=== PATIENT | female | born 1990 | race African-American/Black ===

== ENCOUNTER 2018-03-03 11:56 | Emergency (ER) | payer MEDICAID ==
[2018-03-03 12:18] VITALS: BP 122/75
--- NOTE | 2018-03-03 12:58 | EDM.PDOC ---
ED HPI GENERAL MEDICAL PROBLEM - General Chief Complaint: Abdominal Pain Stated Complaint: LUMP NEAR NAVEL Time Seen by Provider: 03/03/18 12:24 Source of Information: Reports: Patient History Limitations: Reports: No Limitations - History of Present Illness INITIAL COMMENTS - FREE TEXT/NARRATIVE: The patient states that she has been experiencing sharp pain superior and to the right of her umbilicus, on and off for the past year. She states that she feels a "protrusion" there, which goes up and goes down. No recent fever, nausea , vomiting, or diarrhea. The patient has had recent constipation. No recent urinary symptoms. No prior medical evaluation for this issue, and it is unclear what brings the patient to the ED today, specifically. The patient does not have a PCP. 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: - Past Surgical History HEENT Surgical History: Reports: Oral Surgery (Upper left wisdom tooth extraction) Female Surgical History: Reports: Section (x 2) Social & Family History - Family History Family Medical History: Noncontributory - Tobacco Use Smoking Status *Q: Former Smoker Years of Tobacco use: 5 Packs/Tins Daily: 0.3 Month/Year Tobacco Last Used: Quit around Aug 2017 - Caffeine Use Caffeine Use: Reports: Coffee, Energy Drinks, Soda, Tea - Alcohol Use Alcohol Use History: Yes Alcohol Use Frequency: Socially - Recreational Drug Use Recreational Drug Use: No - Living Situation & Occupation Living situation: Reports: Single, with Family (Mother, 2 sons) 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 ED EXAM, GI/ABD - Physical Exam Exam: See Below Exam Limited By: No Limitations General Appearance: Alert, WD/WN, No Apparent Distress GI/Abdominal Exam: Normal Bowel Sounds, Soft, Non-Tender, No Organomegaly, No Distention, No Abnormal Bruit, Other (Very small periumbilical hernia, located just superior and to the right of the patient's umbilicus, easily reducible, with no significant tenderness) Neurological: Alert, Oriented, Normal Cognition, No Motor/Sensory Deficits Psychiatric: Normal Affect Skin Exam: Warm, Dry, Intact, Normal Color, No Rash Course - Vital Signs Last Recorded V/S: Last Vital Signs Temp 36.7 C 03/03/18 12:15 Pulse 65 03/03/18 12:15 Resp 20 03/03/18 12:15 BP 122/75 03/03/18 12:15 Pulse Ox 99 03/03/18 12:15 - Re-Assessments/Exams Free Text/Narrative Re-Assessment/Exam: 03/03/18 12:55 The patient likely has a paraumbilical hernia, easily reducible. It is not a medical emergency, therefore there is no indication for an emergent ultrasound or CT scan of the abdomen. I will instead refer the patient to Dr. Green for further evaluation. Departure - Departure Time of Disposition: 12:56 Disposition: Home, Self-Care 01 Condition: Good Clinical Impression: Paraumbilical hernia - Discharge Information Instructions: Umbilical Hernia, Adult Referrals: Dione Mckeon MD [Primary Care Provider] - Cleveland Green MD [Physician] - Forms: ED Department Discharge Additional Instructions: You were seen in the emergency room for a painful lump by your umbilicus. On examination, you likely have an easily reducible paraumbilical hernia. As this is not a medical emergency, no imaging study was performed. Follow-up with the surgeon Dr. Green at the next available appointment, for further evaluation. If any other problems, please do not hesitate to return to the ER.
== END 2018-03-03 13:00 | disposition home or self-care (01) ==
LOC: JD.ED 11:56
DX: K42.9 Umbilical hernia without obstruction or gangrene (principal); Z79.899 Other long term (current) drug therapy; Z87.891 Personal history of nicotine dependence
CPT/HCPCS: 99283

== ENCOUNTER 2018-03-13 21:33 | Emergency (ER) | payer OTHER, MEDICAID ==
[2018-03-13 21:49] VITALS: BP 129/81
== END 2018-03-13 21:57 | disposition left against medical advice (07) ==
LOC: JD.ED 21:33
DX: Z53.21 Procedure and treatment not carried out due to patient leaving prior to being seen by health care provider (principal)
CPT/HCPCS: 99283

== ENCOUNTER 2018-05-23 09:49 | Emergency (ER) | payer MEDICAID ==
[2018-05-23 09:56] VITALS: BP 120/65
--- NOTE | 2018-05-23 10:43 | CT ---
Head CT Technique: Multiple axial sections through the brain were obtained. Intravenous contrast was not utilized. Comparison: No previous intracranial imaging. Findings: Ventricles along with basal cisterns and sulci over convexities appear within normal limits for the patient's age. No abnormal parenchymal densities are seen. No evidence of intracranial hemorrhage. No midline shift or mass effect is seen. Bone window settings were reviewed which shows no acute calvarial abnormality. Visualized sinuses are clear. Impression: 1. Nothing acute is appreciated on noncontrast head CT exam. Diagnostic code #1
--- NOTE | 2018-05-23 10:47 | CT ---
CT facial bones Technique: Multiple axial sections through the facial bones were obtained. Reconstructed coronal and sagittal images were obtained. Comparison: No prior facial bone exam. Findings: Paranasal sinuses are clear. Right and left globes are symmetric. No facial bone fracture is seen. Dental caries are felt to be present. Impression: 1. Dental caries appear to be present. 2. CT study of the facial bones is otherwise unremarkable. Diagnostic code #3
--- NOTE | 2018-05-23 11:14 | CR ---
Right humerus: Two views of the right humerus were obtained. Comparison: No previous study. No fracture or other abnormality is seen. Impression: 1. No abnormality is seen on two-view right humerus exam. Diagnostic code #1
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
== END 2018-05-23 12:03 | disposition home or self-care (01) ==
LOC: JD.ED 09:49
DX: S06.0X9A Concussion with loss of consciousness of unspecified duration, initial encounter (principal); S00.83XA Contusion of other part of head, initial encounter; S40.022A Contusion of left upper arm, initial encounter; Y04.2XXA Assault by strike against or bumped into by another person, initial encounter
CPT/HCPCS: 70450; 70450-26; 70486; 70486-26; 73060-26-RT; 73060-RT; 99284; 99284-25

== ENCOUNTER 2018-11-02 19:15 | Emergency (ER) | payer MEDICAID ==
[2018-11-02 19:32] VITALS: BP 116/79
--- NOTE | 2018-11-02 19:49 | EDM.PDOC ---
ED HPI GENERAL MEDICAL PROBLEM - General Chief Complaint: ENT Problem Stated Complaint: ITCHY EYES Time Seen by Provider: 11/02/18 19:28 Source of Information: Reports: Patient History Limitations: Reports: No Limitations - History of Present Illness INITIAL COMMENTS - FREE TEXT/NARRATIVE: The patient has itchy, watery eyes with a yellowish discharge. This started yesterday. She is getting over a cold where she had a cough, fever, sore throat , congestion and runny nose. She has no medical problems or allergies. Onset: Gradual Duration: Day(s): (2) Quality: Reports: Other (itchy) Severity: Moderate Improves with: Reports: None Worsens with: Reports: None Associated Symptoms: Reports: No Other Symptoms Bilateral Eye Pain Score (Numeric/FACES): 6 - Related Data Allergies Allergy/AdvReac Type Severity Reaction Status Date / Time No Known Allergies Allergy Verified 11/02/18 19:32 Home Meds: Home Meds Ethinyl Estradiol/Drospirenone [Wen 28] 1 tab PO DAILY 03/03/18 [History] Naproxen [Naprosyn] 500 mg PO Q12HR PRN 7 Days #14 tab 06/07/18 [Rx] Ciprofloxacin [Ciprofloxacin 0.3% Ophth Soln] 1 drop EYEBOTH Q4HR #1 bottle 03/16 [Rx] Past Medical History - Past Health History Medical/Surgical History: Denies 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: Musculoskeletal History: Reports: Neck Pain, Chronic - Past Surgical History HEENT Surgical History: Reports: Oral Surgery GI Surgical History: Reports: Hernia Repair/Other Female Surgical History: Reports: Section Social & Family History - Family History Family Medical History: Noncontributory - Tobacco Use Smoking Status *Q: Never Smoker - Caffeine Use Caffeine Use: Reports: None - Recreational Drug Use Recreational Drug Use: No - Living Situation & Occupation Living situation: Reports: Single, with Family (Mother, 2 sons) 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) ED 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 ENT - Review of Systems Review Of Systems: See Below Constitutional: Reports: No Symptoms HEENT: Reports: Eye Discharge Respiratory: Reports: No Symptoms Cardiovascular: Reports: No Symptoms Endocrine: Reports: No Symptoms GI/Abdominal: Reports: No Symptoms : Reports: No Symptoms ED EXAM, ENT - Physical Exam Exam: See Below Exam Limited By: No Limitations General Appearance: Alert, No Apparent Distress Eye Exam: Bilateral Eye: Conjunctival Injection Ears: Normal External Exam Nose: Normal Inspection Mouth/Throat: Normal Inspection Head: Atraumatic, Normocephalic Neck: Normal Inspection, Supple, Non-Tender Respiratory/Chest: No Respiratory Distress, Lungs Clear, Normal Breath Sounds Cardiovascular: Regular Rate, Rhythm, No Edema, No Murmur GI/Abdominal: Soft, Non-Tender, No Organomegaly, No Mass Back: Normal Inspection Extremities: Normal Inspection Neurological: Alert, Oriented, No Motor/Sensory Deficits Course - Vital Signs Last Recorded V/S: Last Vital Signs Temp 98.2 F 11/02/18 19:28 Pulse 86 11/02/18 19:28 Resp 18 11/02/18 19:28 BP 116/79 11/02/18 19:28 Pulse Ox 99 11/02/18 19:28 Departure - Departure Time of Disposition: 19:50 Disposition: Home, Self-Care 01 Condition: Good Clinical Impression: Bacterial conjunctivitis of both eyes - Discharge Information *PRESCRIPTION DRUG MONITORING PROGRAM REVIEWED*: Not Applicable *COPY OF PRESCRIPTION DRUG MONITORING REPORT IN PATIENT ELIOT: Not Applicable Prescriptions: Ciprofloxacin [Ciprofloxacin 0.3% Ophth Soln] 1 drop EYEBOTH Q4HR #1 bottle Referrals: Dione Mckeon MD [Primary Care Provider] - Additional Instructions: Use the cipro drops 1 drop in each eye every 4 hours while awake for 5 to 7 days. Use a warm wash cloth a couple times per day to clean each eye. Please return if you are worse.
== END 2018-11-02 20:05 | disposition home or self-care (01) ==
LOC: JD.ED 19:15
DX: H10.89 Other conjunctivitis (principal); B96.89 Other specified bacterial agents as the cause of diseases classified elsewhere; Z79.899 Other long term (current) drug therapy
CPT/HCPCS: 99283

== ENCOUNTER 2019-01-25 18:55 | Emergency (ER) | payer MEDICAID ==
[2019-01-25 19:07] VITALS: BP 119/66
--- NOTE | 2019-01-25 19:39 | EDM.PDOC ---
ED HPI GENERAL MEDICAL PROBLEM - General Chief Complaint: Upper Extremity Injury/Pain Stated Complaint: hand injury Time Seen by Provider: 01/25/19 19:38 Source of Information: Reports: Patient History Limitations: Reports: No Limitations - History of Present Illness INITIAL COMMENTS - FREE TEXT/NARRATIVE: 28-year-old female presents for evaluation and treatment of injury to the right hand. Patient was playing with her children yesterday. She states that her hand "bent all the Way back." She has pain primarily to the proximal phalanx of her right thumb. She reports pain with range of motion. No pain into fingers 2 through 5. No numbness or tingling. Patient is right-handed. 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: Musculoskeletal History: Reports: Neck Pain, Chronic - Past Surgical History HEENT Surgical History: Reports: Oral Surgery GI Surgical History: Reports: Hernia Repair/Other Female Surgical History: Reports: Section Social & Family History - Family History Family Medical History: Noncontributory - Tobacco Use Smoking Status *Q: Never Smoker Second Hand Smoke Exposure: No - Caffeine Use Caffeine Use: Reports: None - Recreational Drug Use Recreational Drug Use: No - Living Situation & Occupation Living situation: Reports: Single, with Family (Mother, 2 sons) 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) Review of Systems - Review of Systems Review Of Systems: See Below Musculoskeletal: Reports: Hand Pain (right, proximal first phalnex) Neurological: Denies: Numbness, Tingling ED EXAM, GENERAL - Physical Exam Exam: See Below Exam Limited By: No Limitations General Appearance: Alert, WD/WN, No Apparent Distress Cardiovascular: Normal Peripheral Pulses, Regular Rate, Rhythm Peripheral Pulses: 2+: Radial (R) Extremities: Normal Inspection (no obvious deformity), Normal Capillary Refill, Limited Range of Motion (pain with opposition, adduction, abduction, flexion and extension), Other (tendernes to palpation to the right proximal first phalnex along the radial aspect). No: Increased Warmth Neurological: Alert, Oriented, Normal Cognition Psychiatric: Normal Affect, Normal Mood Skin Exam: Warm, Dry, Normal Color Course - Vital Signs Last Recorded V/S: Last Vital Signs Temp 97.8 F 01/25/19 19:05 Pulse 66 01/25/19 19:05 Resp 16 01/25/19 19:05 BP 119/66 01/25/19 19:05 Pulse Ox 98 01/25/19 19:05 - Radiology Interpretation Free Text/Narrative:: xrays of the right hand show no acute fractures or dislocations. Formal radiology read pending. - Re-Assessments/Exams Free Text/Narrative Re-Assessment/Exam: 01/25/19 20:14 Reviewed the xrays with the patient. Will treat for gameshannanepers thumb with thumb spika splint. Instructed on symptomatic care. Discharge instructions as documented. Departure - Departure Time of Disposition: 20:15 Disposition: Home, Self-Care 01 Condition: Good Clinical Impression: Gamekeeper's thumb - Discharge Information *PRESCRIPTION DRUG MONITORING PROGRAM REVIEWED*: No *COPY OF PRESCRIPTION DRUG MONITORING REPORT IN PATIENT ELIOT: No Instructions: Thumb Sprain Referrals: Dione Mckeon MD [Primary Care Provider] - Dar Malcolm MD [Physician] - Forms: ED Department Discharge Additional Instructions: [id number] Tylenol or Motrin as needed for pain relief. Ice as needed. Wear the splint for the next 2 weeks. You may remove and perform gentle range of motion as tolerated. Follow-up with orthopedics if not much better in [address] Malcolm call [phone] to schedule with him. Please return the ER if your symptoms change or worsen.
--- NOTE | 2019-01-26 06:47 | CR ---
Right hand: Four views of the right hand were obtained. Comparison: No prior hand exam. Joint spaces are preserved. Small cysts are seen within several carpal bones which are incidental. No acute fracture, dislocation or other bony abnormality is seen. Impression: 1. Incidental finding. Nothing acute is appreciated on right hand exam. Diagnostic code #2
== END 2019-01-25 20:25 | disposition home or self-care (01) ==
LOC: JD.ED 18:55
DX: S63.601A Unspecified sprain of right thumb, initial encounter (principal); Z79.899 Other long term (current) drug therapy; X50.9XXA Other and unspecified overexertion or strenuous movements or postures, initial encounter
CPT/HCPCS: 73130-26-RT; 73130-RT; 99282; 99283-25